=== PATIENT | female | born 1960 | race Caucasian/White ===

== ENCOUNTER 2022-01-26 19:00 | Inpatient (IN) | payer MEDICAID ==
[~2022-01-26] VITALS: Ht 157.5 cm; Wt 54.2 kg
[2022-01-26 19:39] VITALS: BP 136/72
[2022-01-26 19:53] VITALS: BP 136/72
[2022-01-26] MEDS ORDERED: NITROGLYCERIN 0.4MG TABLET SL SL PRN (20:30)
[2022-01-26] MEDS ORDERED: ACETAMINOPHEN 325MG TABLET PO PRN (20:45)
[2022-01-26] MEDS ORDERED: BISACODYL 10MG SUPP PR PRN (21:00)
[2022-01-26] MEDS ORDERED: DIPHENHYDRAMINE 25MG CAPSULE PO PRN (21:00)
[2022-01-26] MEDS ORDERED: ASCORBIC ACID 500 MG TABLET PO SCH (21:00)
[2022-01-26] MEDS ORDERED: DOCUSATE SODIUM 100MG CAPSULE PO SCH (21:00)
[2022-01-26] MEDS: ALLOPURINOL 300 MG TABLET PO SCH (21:50)
[2022-01-26] MEDS ORDERED: CHLORHEXIDINE GLUCONATE 4% EXTERNAL USE TOP SCH (22:00)
[2022-01-26 22:54] LABS: BASOPHILS % 0.3 % (0.0-2.0); EOSINOPHILS % 0.3 % (0.0-5.0); HEMATOCRIT. 43.6 % (36.0-48.0); HEMOGLOBIN. 14.9 g/dL (12.0-16.0); LYMPHOCYTES % 22.8 % (20.0-50.0); MEAN CORPUSCULAR HEMOGLOBIN 31.7 pg (28.0-32.0); MEAN CORPUSCULAR VOLUME 92.8 fL (81.0-99.0); MEAN PLATELET VOLUME 8.2 fl (7.4-10.4); MONOCYTES % 7.3 % (2.0-8.0); NEUTROPHILS % 69.3 % (40.0-76.0); PLATELET 178 x1000/uL (130-400); RED CELL DISTRIBUTION WIDTH 14.6 % (11.6-14.6)
[2022-01-26 23:02] LABS: CHLORIDE 87 mEq/L (98-107)
[2022-01-26] MEDS ORDERED: PAPAVERINE HCL 180MG in SODIUM CHLORIDE 0.9% 24ML IV NR (23:15)
[2022-01-27] VITALS (41 sets, daily range): BP systolic 92–145; BP diastolic 51–96
[2022-01-27 01:35] LABS: CLARITY URINE CLEAR (CLEAR); COLOR URINE YELLOW (YELLOW); KETONES URINE NEGATIVE (NEGATIVE); LEUKOCYTE ESTERASE URINE NEGATIVE (NEGATIVE); NITRITE URINE NEGATIVE (NEGATIVE); OCCULT BLOOD URINE NEGATIVE (NEGATIVE); PH URINE 6.5 (4.5-8.0); PROTEIN URINE NEGATIVE (NEGATIVE); SPECIFIC GRAVITY URINE 1.005 (1.005-1.030); UROBILINOGEN URINE 0.2 E.U./dL (0.2-1.0)
[2022-01-27] MEDS: ALLOPURINOL 300 MG TABLET PO SCH (05:03)
[2022-01-27] MEDS: MORPHINE SULFATE 2 MG/ML CPJ (NOT FOR IM USE) IV PRN (05:04)
[2022-01-27] MEDS ORDERED: EPINEPHRINE 5 MG in DEXT 5% WATER 245 ML IV NR ×4 (06:00)
[2022-01-27] MEDS ORDERED: DOPAMINE HCL 400 MG in DEXT 5% WATER 240 ML IV NR (06:00)
[2022-01-27] MEDS ORDERED: NOREPINEPHRINE 8 MG in DEXT 5% WATER 242 ML IV NR (06:00)
[2022-01-27] MEDS ORDERED: VANCOMYCIN 1G PREMIX 200ML IV NR (06:00)
[2022-01-27] MEDS ORDERED: DEL NIDO ELECTROLYTE-S(PH 7.4) 1,000 ML IV NR ×2 (06:00)
[2022-01-27] MEDS ORDERED: INSULIN REGULAR (DRIP) 100 UNITS in SODIUM CHLORIDE 0.9% 99 ML IV NR (06:00)
[2022-01-27] MEDS ORDERED: DOBUTAMINE 250 MG in DEXT 5% WATER 230 ML IV NR (06:00)
[2022-01-27 08:30] LABS: BASOPHILS % 0.4 % (0.0-2.0); EOSINOPHILS % 0.6 % (0.0-5.0); HEMATOCRIT. 40.3 % (36.0-48.0); HEMOGLOBIN. 14.1 g/dL (12.0-16.0); LYMPHOCYTES % 18.5 % (20.0-50.0); MEAN CORPUSCULAR HEMOGLOBIN 31.5 pg (28.0-32.0); MEAN CORPUSCULAR VOLUME 90.2 fL (81.0-99.0); MEAN PLATELET VOLUME 8.5 fl (7.4-10.4); MONOCYTES % 8.2 % (2.0-8.0); NEUTROPHILS % 72.3 % (40.0-76.0); PLATELET 170 x1000/uL (130-400); RED BLOOD CELL COUNT 4.47 mill/uL (4.2-5.4); RED CELL DISTRIBUTION WIDTH 14.6 % (11.6-14.6)
[2022-01-27 08:47] LABS: PROTHROMBIN TIME 10.3 sec (9.6-11.0)
[2022-01-27] MEDS ORDERED: PHENYLEPHRINE HCL 10 MG/ML 1ML (IV VIAL) IV ONE (08:57)
[2022-01-27] MEDS ORDERED: CALCIUM CHLORIDE 1GM/10ML SYR IV ONE ×2 (08:57→15:07)
[2022-01-27] MEDS ORDERED: POTASSIUM CHLORIDE 40MEQ/20ML INJ IV ONE (08:57)
[2022-01-27] MEDS ORDERED: SODIUM BICARBONATE 8.4% 1 MEQ/ML 50ML SYR IV ONE (08:57)
[2022-01-27] MEDS ORDERED: HEPARIN 1000 UNITS/ML 10ML ONE (08:57)
[2022-01-27] MEDS ORDERED: MANNITOL 20% (20GM/100ML) BAG 500ML PREMIX IV ONE (08:57)
[2022-01-27] MEDS ORDERED: ALBUMIN HUMAN 25GM/100ML (25%) IV ONE (08:57)
[2022-01-27] MEDS ORDERED: MAGNESIUM SULFATE 5GM/10ML VIAL IV ONE (08:57)
[2022-01-27] MEDS ORDERED: HEPARIN 10,000 UNITS/ML VIAL ONE ×2 (08:57→11:08)
[2022-01-27] MEDS ORDERED: CHLORHEXIDINE GLUCONATE 4% EXTERNAL USE TOP SCH (09:00)
[2022-01-27 09:16] LABS: CHLORIDE 93 mEq/L (98-107)
[2022-01-27] MEDS ORDERED: POLYMYXIN B SULFATE 500000 UNITS/VIAL ONE (09:39)
[2022-01-27] MEDS ORDERED: BACITRACIN 15GM TUBE TOP ONE (09:40)
[2022-01-27] MEDS ORDERED: THROMBIN (BOVINE) 5000 UNITS/VIAL TOP ONE (09:40)
[2022-01-27] MEDS ORDERED: POTASSIUM CHLORIDE INJ 40 MEQ in DEXT 5% WATER 250 ML IV ONE (10:30)
[2022-01-27] MEDS ORDERED: KCL 10MEQ/50ML PREMIX 150 ML IV PRN (11:00)
[2022-01-27] MEDS ORDERED: DEXTROSE 50% WATER 50ML SYRINGE IV PRN ×2 (11:00)
[2022-01-27] MEDS ORDERED: KCL 10MEQ/50ML PREMIX 200 ML IV PRN (11:00)
[2022-01-27] MEDS ORDERED: INSULIN REGULAR 100U/100ML PMX 100 ML IV SCH (11:00)
[2022-01-27] MEDS: BLOOD SUGAR DIAGNOSTIC STRIP TEST SCH ×8 (11:08→23:52)
[2022-01-27] MEDS ORDERED: ROCURONIUM BROMIDE 10MG/ML VIAL 5ML IV ONE ×2 (11:56→12:12)
[2022-01-27] MEDS ORDERED: DEXAMETHASONE 4MG/ML 1ML VIAL ONE (12:14)
[2022-01-27] MEDS ORDERED: PROPOFOL 10MG/ML 100ML 100 ML IV ONE (13:23)
[2022-01-27] MEDS ORDERED: SKIN ADHESIVE 0.7 GM EA TOP ONE (13:34)
[2022-01-27] MEDS ORDERED: KCL 20MEQ/100ML X 2 FOR TOTAL KCL 40MEQ/200ML IV SCH (14:00)
[2022-01-27] MEDS ORDERED: HYDROCORTISONE SOD SUCCINATE 100 MG/2 ML VIAL ONE (15:06)
[2022-01-27] MEDS ORDERED: CEFAZOLIN SODIUM 1000MG/VIAL ONE (15:06)
[2022-01-27] MEDS ORDERED: FUROSEMIDE 100MG/10ML VIAL ONE (15:06)
[2022-01-27] MEDS ORDERED: AMINOCAPROIC ACID 250 MG/ML 20ML VIAL ONE (15:06)
[2022-01-27] MEDS ORDERED: PROTAMINE SULFATE 10MG/ML VIAL 25ML IV ONE (16:33)
[2022-01-27] MEDS ORDERED: AMIODARONE HCL 50MG/ML 3ML VIAL IV ONE (16:33)
[2022-01-27] MEDS ORDERED: GLYCOPYRROLATE 0.2 MG/ML 2ML VIAL ONE ×2 (16:34→17:02)
[2022-01-27] MEDS ORDERED: NEOSTIGMINE METHYLSULFATE 1MG/ML 10 ML VIAL ONE (16:34)
[2022-01-27] MEDS ORDERED: FENTANYL CITRATE/PF 50MCG/ML 2ML VIAL ONE (16:36)
[2022-01-27] MEDS ORDERED: DOPAMINE 400MG/250ML PREMIX 250 ML IV SCH (17:00)
[2022-01-27] MEDS ORDERED: MORPHINE SULFATE 2 MG/ML CPJ (NOT FOR IM USE) IV PRN (17:00)
[2022-01-27] MEDS ORDERED: SODIUM CHLORIDE 0.9% 500 ML IV PRN (17:00)
[2022-01-27] MEDS ORDERED: MAGNESIUM 2 G PREMIX 50 ML IV PRN (17:00)
[2022-01-27] MEDS ORDERED: CALCIUM CHLORIDE 5,000 MG in DEXT 5% WATER 500 ML IV PRN (17:00)
[2022-01-27] MEDS ORDERED: MAGNESIUM 1 G PREMIX 100 ML IV PRN (17:00)
[2022-01-27] MEDS: DOCUSATE SODIUM 100MG CAPSULE PO SCH (17:00)
[2022-01-27] MEDS: BACITRACIN 15GM TUBE TOP SCH (17:00)
[2022-01-27] MEDS ORDERED: ONDANSETRON HCL 4MG/2ML INJ IV PRN (17:00)
[2022-01-27] MEDS ORDERED: OXYCODONE HCL/ACETAMINOPHEN 5/325MG TABLET PO PRN ×2 (17:00)
[2022-01-27] MEDS ORDERED: ALBUMIN HUMAN 12.5G/250ML (5%) IV PRN (17:00)
[2022-01-27] MEDS ORDERED: ACETAMINOPHEN 325MG TABLET PO PRN (17:00)
[2022-01-27] MEDS ORDERED: MAGNESIUM SULFATE 3 GM in DEXT 5% WATER 100 ML IV PRN (17:00)
[2022-01-27] MEDS: MAGNESIUM HYDROXIDE 400MG/5ML 30ML UDC PO SCH ×2 (17:00→21:00)
[2022-01-27] MEDS ORDERED: EPINEPHRINE 5 MG in DEXT 5% WATER 245 ML IV SCH (17:00)
[2022-01-27] MEDS ORDERED: ALBUMIN HUMAN 25GM/100ML (25%) IV PRN (17:00)
[2022-01-27] MEDS ORDERED: CALCIUM CHLORIDE 3,000 MG in DEXT 5% WATER 250 ML IV PRN (17:00)
[2022-01-27 17:29] LABS: BG BASE EXCESS 0.6 mmol/L (-2.0-2.0); BG CARBOXYHEMOGLOBIN 0.3 % (0.5-1.5); BG DEOXYHEMOGLOBIN 1.1 % (0.0-5.0); BG FRACTION INSPIRED OXYGEN 100; BG METHEMOGLOBIN 0.4 % (0.0-1.5); BG OXYGEN SATURATION 98.9 % (92.0-98.5); BG OXYHEMOGLOBIN 98.2 % (94.0-97.0); BG PH 7.342 (7.350-7.450); BG PO2 202.5 mmHg (75.0-100.0); BG SAMPLE SITE ALINE; BG TOTAL HEMOGLOBIN 12.4 g/dL (12.0-18.0); BG VENT MODE MASK - NRB
[2022-01-27 17:40] LABS: HEMOGLOBIN. 11.7 g/dL (12.0-16.0); MEAN CORPUSCULAR HEMOGLOBIN 31.7 pg (28.0-32.0); MEAN CORPUSCULAR VOLUME 91.7 fL (81.0-99.0); MEAN PLATELET VOLUME 7.9 fl (7.4-10.4); PLATELET 113 x1000/uL (130-400); RED BLOOD CELL COUNT 3.71 mill/uL (4.2-5.4); RED CELL DISTRIBUTION WIDTH 14.4 % (11.6-14.6)
[2022-01-27] MEDS ORDERED: DEXT 5%/0.45% NACL 1000ML 1,000 ML IV SCH (17:45)
[2022-01-27 17:54] LABS: CHLORIDE 105 mEq/L (98-107)
[2022-01-27 17:58] LABS: PLATELET ESTIMATE DECREASED
[2022-01-27] MEDS ORDERED: ALBUMIN HUMAN 12.5G/250ML (5%) IV NR ×2 (19:15→19:45)
[2022-01-27] MEDS ORDERED: CALCIUM CHLORIDE 3,000 MG in DEXT 5% WATER 90 ML IV NR (19:30)
[2022-01-27] MEDS ORDERED: DESMOPRESSIN ACETATE IVPB 18 MCG in SODIUM CHLORIDE 0.9% 50 ML IV NR (19:30)
[2022-01-27] MEDS ORDERED: AMINOCAPROIC ACID 5,000 MG in SODIUM CHLORIDE 0.9% 250 ML IV NR (19:45)
[2022-01-27] MEDS ORDERED: ALBUMIN HUMAN 25GM/100ML (25%) IV NR ×2 (19:49→20:00)
[2022-01-27] MEDS ORDERED: AMINOCAPROIC ACID 5,000 MG in SODIUM CHLORIDE 0.9% 250 ML IV ONE (20:00)
[2022-01-27] MEDS: IPRATROPIUM/ALBUTEROL 0.5-3(2.5)MG/3ML NEB HHN SCH (20:48)
[2022-01-27] MEDS: VANCOMYCIN 750 MG in DEXT 5% WATER 250 ML IV SCH (21:00)
[2022-01-27] MEDS ORDERED: FUROSEMIDE 40MG/4ML VIAL IVP NR (21:15)
[2022-01-28] VITALS (100 sets, daily range): BP systolic 95–156; BP diastolic 40–80
[2022-01-28] MEDS: IPRATROPIUM/ALBUTEROL 0.5-3(2.5)MG/3ML NEB HHN SCH ×6 (00:20→20:23)
[2022-01-28] MEDS: BLOOD SUGAR DIAGNOSTIC STRIP TEST SCH ×18 (00:28→20:54)
[2022-01-28 00:30] LABS: HEMATOCRIT. 25.4 % (36.0-48.0); HEMOGLOBIN. 8.7 g/dL (12.0-16.0); MEAN CORPUSCULAR HEMOGLOBIN 31.7 pg (28.0-32.0); MEAN CORPUSCULAR VOLUME 92.3 fL (81.0-99.0); PLATELET 86 x1000/uL (130-400); RED BLOOD CELL COUNT 2.75 mill/uL (4.2-5.4); RED CELL DISTRIBUTION WIDTH 14.6 % (11.6-14.6)
[2022-01-28] MEDS: ACETAMINOPHEN 325MG TABLET PO PRN ×2 (00:48→23:10)
[2022-01-28 00:49] LABS: CHLORIDE 106 mEq/L (98-107)
[2022-01-28 00:54] LABS: PHOSPHORUS 2.7 mg/dL (2.5-4.9)
[2022-01-28] MEDS: MAGNESIUM HYDROXIDE 400MG/5ML 30ML UDC PO SCH ×5 (01:00→16:10)
[2022-01-28 01:16] LABS: HEMATOCRIT. 24.9 % (36.0-48.0); HEMOGLOBIN. 8.6 g/dL (12.0-16.0); MEAN CORPUSCULAR HEMOGLOBIN 31.7 pg (28.0-32.0); MEAN CORPUSCULAR VOLUME 92.1 fL (81.0-99.0); MEAN PLATELET VOLUME 8.7 fl (7.4-10.4); PLATELET 82 x1000/uL (130-400); RED BLOOD CELL COUNT 2.71 mill/uL (4.2-5.4); RED CELL DISTRIBUTION WIDTH 14.5 % (11.6-14.6)
[2022-01-28] MEDS: ONDANSETRON HCL 4MG/2ML INJ IV PRN ×2 (01:46→16:47)
[2022-01-28] MEDS ORDERED: FUROSEMIDE 40MG/4ML VIAL IVP SCH (04:30)
[2022-01-28] MEDS ORDERED: KCL 20MEQ/100ML PREMIX 100 ML IV SCH (06:30)
[2022-01-28 06:56] LABS: PLATELET ESTIMATE DECREASED
[2022-01-28 07:11] LABS: PLATELET ESTIMATE DECREASED
[2022-01-28] MEDS: BACITRACIN 15GM TUBE TOP SCH ×2 (08:11→16:10)
[2022-01-28] MEDS: DOCUSATE SODIUM 100MG CAPSULE PO SCH ×2 (08:58→16:10)
[2022-01-28] MEDS: VANCOMYCIN 750 MG in DEXT 5% WATER 250 ML IV SCH ×2 (08:59→20:58)
[2022-01-28] MEDS: MORPHINE SULFATE 2 MG/ML CPJ (NOT FOR IM USE) IV PRN ×2 (09:00→15:24)
[2022-01-28] MEDS ORDERED: FAMOTIDINE 20MG/2ML VIAL IV SCH (09:00)
[2022-01-28 09:18] LABS: HEMATOCRIT. 35.8 % (36.0-48.0); HEMOGLOBIN. 12.3 g/dL (12.0-16.0); MEAN CORPUSCULAR HEMOGLOBIN 31.5 pg (28.0-32.0); MEAN CORPUSCULAR VOLUME 92.1 fL (81.0-99.0); MEAN PLATELET VOLUME 8.8 fl (7.4-10.4); PLATELET 67 x1000/uL (130-400); RED BLOOD CELL COUNT 3.89 mill/uL (4.2-5.4); RED CELL DISTRIBUTION WIDTH 14.2 % (11.6-14.6)
[2022-01-28] MEDS: KCL 10MEQ/50ML PREMIX 100 ML IV PRN ×3 (11:07→17:45)
[2022-01-28 13:33] LABS: PLATELET ESTIMATE DECREASED
[2022-01-28 16:47] LABS: HEMOGLOBIN. 11.8 g/dL (12.0-16.0); MEAN CORPUSCULAR HEMOGLOBIN 31.5 pg (28.0-32.0); MEAN PLATELET VOLUME 9.2 fl (7.4-10.4); PLATELET 72 x1000/uL (130-400); RED BLOOD CELL COUNT 3.73 mill/uL (4.2-5.4); RED CELL DISTRIBUTION WIDTH 14.3 % (11.6-14.6)
[2022-01-28] MEDS: INSULIN LISPRO 100 UNITS/ML SUBCUT SCH ×2 (17:46→20:55)
[2022-01-28 18:00] LABS: PLATELET ESTIMATE SLIGHTLY DECREASED
[2022-01-29] VITALS (20 sets, daily range): BP systolic 103–132; BP diastolic 61–80
[2022-01-29] MEDS: IPRATROPIUM/ALBUTEROL 0.5-3(2.5)MG/3ML NEB HHN SCH ×5 (00:18→20:49)
[2022-01-29 04:36] LABS: HEMOGLOBIN. 11.3 g/dL (12.0-16.0); MEAN CORPUSCULAR HEMOGLOBIN 31.5 pg (28.0-32.0); MEAN CORPUSCULAR VOLUME 91.9 fL (81.0-99.0); MEAN PLATELET VOLUME 9.6 fl (7.4-10.4); PLATELET 82 x1000/uL (130-400); RED BLOOD CELL COUNT 3.59 mill/uL (4.2-5.4); RED CELL DISTRIBUTION WIDTH 14.5 % (11.6-14.6)
[2022-01-29 04:43] LABS: CHLORIDE 106 mEq/L (98-107)
[2022-01-29] MEDS ORDERED: FUROSEMIDE 20MG/2ML VIAL IVP NR (06:15)
[2022-01-29] MEDS: BLOOD SUGAR DIAGNOSTIC STRIP TEST SCH ×4 (07:50→20:57)
[2022-01-29] MEDS ORDERED: FAMOTIDINE 20MG TABLET PO SCH (09:00)
[2022-01-29] MEDS ORDERED: NALOXONE HCL 0.4MG/ML VIAL IV PRN (09:30)
[2022-01-29] MEDS: DOCUSATE SODIUM 250MG CAPSULE PO SCH ×2 (09:31→18:28)
[2022-01-29] MEDS: ALBUMIN HUMAN 25GM/100ML (25%) IV SCH ×4 (09:32→18:17)
[2022-01-29] MEDS: BACITRACIN 15GM TUBE TOP SCH ×2 (09:32→18:59)
[2022-01-29] MEDS: INSULIN LISPRO 100 UNITS/ML SUBCUT SCH ×4 (09:56→20:59)
[2022-01-29] MEDS ORDERED: TRAMADOL HCL/ACETAMINOPHEN 37.5/325MG TABLET PO PRN (11:00)
[2022-01-29 14:04] LABS: PLATELET ESTIMATE DECREASED
[2022-01-29] MEDS: METHYLPHENIDATE HCL 5MG TABLET PO SCH ×2 (14:48→17:00)
[2022-01-29] MEDS ORDERED: OMEPRAZOLE 20MG CAPSULE EXTENDED RELEASE PO SCH (20:00)
[2022-01-30] VITALS (12 sets, daily range): BP systolic 123–147; BP diastolic 72–97
[2022-01-30] MEDS: IPRATROPIUM/ALBUTEROL 0.5-3(2.5)MG/3ML NEB HHN SCH ×6 (00:45→19:56)
[2022-01-30] MEDS: BLOOD SUGAR DIAGNOSTIC STRIP TEST SCH ×4 (07:30→21:00)
[2022-01-30] MEDS: INSULIN LISPRO 100 UNITS/ML SUBCUT SCH ×4 (08:00→21:00)
[2022-01-30 08:03] LABS: HEMATOCRIT. 29.6 % (36.0-48.0); HEMOGLOBIN. 10.1 g/dL (12.0-16.0); LYMPHOCYTES % 7.3 % (20.0-50.0); MEAN CORPUSCULAR VOLUME 93.7 fL (81.0-99.0); MEAN PLATELET VOLUME 9.5 fl (7.4-10.4); MONOCYTES % 5.4 % (2.0-8.0); NEUTROPHILS % 87.3 % (40.0-76.0); PLATELET 101 x1000/uL (130-400); RED BLOOD CELL COUNT 3.16 mill/uL (4.2-5.4); RED CELL DISTRIBUTION WIDTH 14.6 % (11.6-14.6)
[2022-01-30 08:31] LABS: CHLORIDE 105 mEq/L (98-107)
[2022-01-30] MEDS: BACITRACIN 15GM TUBE TOP SCH ×2 (09:00→16:24)
[2022-01-30] MEDS: DOCUSATE SODIUM 250MG CAPSULE PO SCH ×2 (09:00→16:10)
[2022-01-30] MEDS: METHYLPHENIDATE HCL 5MG TABLET PO SCH ×3 (09:03→16:10)
[2022-01-30] MEDS ORDERED: METOLAZONE 10MG TABLET PO NR (14:30)
[2022-01-30] MEDS ORDERED: FUROSEMIDE 40MG/4ML VIAL IVP NR (14:30)
[2022-01-30] MEDS ORDERED: KCL 20MEQ/100ML PREMIX 100 ML IV NR (15:00)
[2022-01-30] MEDS: FAMOTIDINE 20MG TABLET PO SCH (17:10)
[2022-01-30] MEDS ORDERED: NALOXONE HCL 0.4MG/ML VIAL IV PRN (21:45)
[2022-01-31] VITALS (12 sets, daily range): BP systolic 122–152; BP diastolic 63–94
[2022-01-31] MEDS: IPRATROPIUM/ALBUTEROL 0.5-3(2.5)MG/3ML NEB HHN SCH ×6 (00:38→20:10)
[2022-01-31] MEDS: BLOOD SUGAR DIAGNOSTIC STRIP TEST SCH (06:48)
[2022-01-31] MEDS: INSULIN LISPRO 100 UNITS/ML SUBCUT SCH (06:49)
[2022-01-31] MEDS: METHYLPHENIDATE HCL 5MG TABLET PO SCH ×3 (08:35→18:28)
[2022-01-31] MEDS: DOCUSATE SODIUM 250MG CAPSULE PO SCH ×2 (08:35→16:07)
[2022-01-31] MEDS: FAMOTIDINE 20MG TABLET PO SCH ×2 (08:35→18:28)
[2022-01-31] MEDS: BACITRACIN 15GM TUBE TOP SCH ×2 (08:36→17:00)
[2022-01-31] MEDS ORDERED: CARVEDILOL 3.125 MG TABLET PO SCH (09:30)
[2022-01-31] MEDS ORDERED: FUROSEMIDE 40MG/4ML VIAL IVP NR (09:30)
[2022-01-31] MEDS: PHENOL/SODIUM PHENOLATE 1.4% SRPAY 177ML MM PRN (15:43)
[2022-01-31] MEDS ORDERED: ATORVASTATIN CALCIUM 20MG TABLET PO SCH (21:00)
[2022-01-31] MEDS: CARVEDILOL 6.25 MG TABLET PO SCH (21:48)
[2022-02-01] VITALS (8 sets, daily range): BP systolic 108–130; BP diastolic 68–84
[2022-02-01] MEDS: IPRATROPIUM/ALBUTEROL 0.5-3(2.5)MG/3ML NEB HHN SCH ×3 (00:22→09:11)
[2022-02-01] MEDS: PHENOL/SODIUM PHENOLATE 1.4% SRPAY 177ML MM PRN (01:44)
[2022-02-01] MEDS: DOCUSATE SODIUM 250MG CAPSULE PO SCH (08:53)
[2022-02-01] MEDS: METHYLPHENIDATE HCL 5MG TABLET PO SCH (08:54)
[2022-02-01] MEDS: CARVEDILOL 6.25 MG TABLET PO SCH (08:54)
[2022-02-01] MEDS: FAMOTIDINE 20MG TABLET PO SCH (08:54)
[2022-02-01] MEDS: BACITRACIN 15GM TUBE TOP SCH (08:55)
== END 2022-02-01 14:24 | disposition home or self-care (01) | DRG 166 ==
LOC: 7EST 19:00 → 7WST 19:36 → CVICU 01-27 17:05 → 5EST 01-29 13:00
PROVIDERS: ADMIT Hospitalist; ATTEND Hospitalist
PROC: 02100Z9 Bypass Coronary Artery, One Artery from Left Internal Mammary, Open Approach (ICD-10-PCS; principal; 2022-01-27)
PROC: 021309W Bypass Coronary Artery, Four or More Arteries from Aorta with Autologous Venous Tissue, Open Approach (ICD-10-PCS; 2022-01-27)
PROC: 5A1221Z Performance of Cardiac Output, Continuous (ICD-10-PCS; 2022-01-27)
PROC: 06BP4ZZ Excision of Right Saphenous Vein, Percutaneous Endoscopic Approach (ICD-10-PCS; 2022-01-27)
PROC: 30233N1 Transfusion of Nonautologous Red Blood Cells into Peripheral Vein, Percutaneous Approach (ICD-10-PCS; 2022-01-28)
DX: I25.10 Atherosclerotic heart disease of native coronary artery without angina pectoris (principal); J96.01 Acute respiratory failure with hypoxia; I21.4 Non-ST elevation (NSTEMI) myocardial infarction; I50.21 Acute systolic (congestive) heart failure; E87.6 Hypokalemia; I25.5 Ischemic cardiomyopathy; I11.0 Hypertensive heart disease with heart failure; I73.9 Peripheral vascular disease, unspecified; Z20.822 Contact with and (suspected) exposure to COVID-19; J93.9 Pneumothorax, unspecified; S90.822A Blister (nonthermal), left foot, initial encounter; X58.XXXA Exposure to other specified factors, initial encounter; Y93.89 Activity, other specified; Y92.89 Other specified places as the place of occurrence of the external cause; Y99.8 Other external cause status; Z88.6 Allergy status to analgesic agent; Z88.1 Allergy status to other antibiotic agents
CPT/HCPCS: 36415; 36600; 71045; 80048; 80053; 81003; 82375; 82805; 82962; 83735; 84100; 84132; 85025; 85347; 86850; 86900; 86920; 87426; 93005; 93880; 93923; 94640; 97110; 97116; 97162; 97166; 97530; 97535; C1729; C1751; C1758; J0282; J0690; J1100; J1250; J1265; J1644; J1720; J1815; J1940; J2270; J2370; J2405; J2440; J2597; J2704; J2710; J2720; J3010; J3370; J3475; J3480; J3490; J7050; J7060; L3908; P9016; P9041; P9047

== ENCOUNTER 2022-02-04 22:41 | Inpatient (IN) | payer MEDICAID ==
[~2022-02-04] VITALS: Ht 160 cm; Wt 58.1 kg
[2022-02-04 23:54] LABS: BASOPHILS % 0.2 % (0.0-2.0); EOSINOPHILS % 0.4 % (0.0-5.0); HEMATOCRIT. 32.2 % (36.0-48.0); HEMOGLOBIN. 11.2 g/dL (12.0-16.0); LYMPHOCYTES % 12.5 % (20.0-50.0); MEAN CORPUSCULAR HEMOGLOBIN 31.6 pg (28.0-32.0); MEAN PLATELET VOLUME 7.8 fl (7.4-10.4); MONOCYTES % 8.2 % (2.0-8.0); NEUTROPHILS % 78.7 % (40.0-76.0); PLATELET 315 x1000/uL (130-400); RED BLOOD CELL COUNT 3.54 mill/uL (4.2-5.4)
[2022-02-05 00:04] LABS: CHLORIDE 90 mEq/L (98-107)
[2022-02-05 02:08] LABS: CLARITY URINE CLEAR (CLEAR); COLOR URINE YELLOW (YELLOW); KETONES URINE NEGATIVE (NEGATIVE); LEUKOCYTE ESTERASE URINE NEGATIVE (NEGATIVE); NITRITE URINE NEGATIVE (NEGATIVE); OCCULT BLOOD URINE TRACE (NEGATIVE); PH URINE 5.5 (4.5-8.0); PROTEIN URINE NEGATIVE (NEGATIVE); SPECIFIC GRAVITY URINE 1.007 (1.005-1.030); UROBILINOGEN URINE 0.2 E.U./dL (0.2-1.0)
[2022-02-05] MEDS ORDERED: HYDROCODONE/ACETAMINOPHEN 10/325MG TABLET PO PRN (06:15)
[2022-02-05 10:18] VITALS: BP 141/77
[2022-02-05] MEDS ORDERED: CARV6.2548 MT (10:42)
[2022-02-05] MEDS ORDERED: DOCU250C69 MT (10:42)
[2022-02-05] MEDS ORDERED: TRAM50TA3 MT (10:43)
[2022-02-05] MEDS ORDERED: FAMO20TA8 MT (10:45)
[2022-02-05] MEDS ORDERED: ATOR20TA65 MT (10:45)
[2022-02-05 12:00] VITALS: BP 146/82
[2022-02-05] MEDS ORDERED: HYDROCODONE/ACETAMINOPHEN 5/325MG TABLET PO PRN (12:00)
[2022-02-05] MEDS ORDERED: ONDANSETRON HCL 4MG/2ML INJ IV PRN (12:00)
[2022-02-05] MEDS ORDERED: FUROSEMIDE 40MG/4ML VIAL IV SCH (12:00)
[2022-02-05] MEDS ORDERED: MAGNESIUM/ALUMINUM HYDROXIDE/SIMETHICONE 30ML UDC PO PRN (12:00)
[2022-02-05] MEDS ORDERED: FUROSEMIDE 40MG/4ML VIAL IVP NR (12:00)
[2022-02-05] MEDS ORDERED: KCL 20MEQ/100ML PREMIX 100 ML IV NR (12:00)
[2022-02-05] MEDS ORDERED: ACETAMINOPHEN 325MG TABLET PO PRN (12:00)
[2022-02-05] MEDS ORDERED: CLONIDINE 0.1MG TABLET PO PRN (12:00)
[2022-02-05 12:48] LABS: HEMATOCRIT 33.3 % (36.0-48.0); HEMOGLOBIN 11.5 g/dL (12.0-16.0); MEAN CORPUSCULAR HEMOGLOBIN 31.6 pg (28.0-32.0); MEAN CORPUSCULAR VOLUME 91.8 fL (81.0-99.0); PLATELET 311 x1000/uL (130-400); RED BLOOD CELL COUNT 3.63 mill/uL (4.2-5.4); RED CELL DISTRIBUTION WIDTH 14.1 % (11.6-14.6)
[2022-02-05 12:57] LABS: CHLORIDE 96 mEq/L (98-107)
[2022-02-05] MEDS: ENOXAPARIN 40MG/0.4ML SYR SUBCUT SCH (13:36)
[2022-02-05 15:54] LABS: CREATINE KINASE MB FRACTION 3.3 ng/mL (0.5-3.6)
[2022-02-05 16:00] VITALS: BP 158/87
[2022-02-05] MEDS ORDERED: CARVEDILOL 6.25 MG TABLET PO SCH (17:00)
[2022-02-05] MEDS: DOCUSATE SODIUM 250MG CAPSULE PO SCH (17:01)
[2022-02-05 20:00] VITALS: BP 136/77
[2022-02-05] MEDS: ATORVASTATIN CALCIUM 20MG TABLET PO SCH (21:37)
[2022-02-05] MEDS: POTASSIUM CHLORIDE 20MEQ TABLET SR PO SCH (21:39)
[2022-02-06 00:16] LABS: CREATINE KINASE MB FRACTION 2.4 ng/mL (0.5-3.6)
[2022-02-06 00:20] VITALS: BP 112/75
[2022-02-06 04:20] VITALS: BP 119/76
[2022-02-06 08:00] VITALS: BP 126/75
[2022-02-06 08:06] LABS: BASOPHILS % 0.2 % (0.0-2.0); EOSINOPHILS % 0.2 % (0.0-5.0); HEMATOCRIT. 31.8 % (36.0-48.0); LYMPHOCYTES % 11.3 % (20.0-50.0); MEAN CORPUSCULAR HEMOGLOBIN 31.6 pg (28.0-32.0); MONOCYTES % 7.2 % (2.0-8.0); NEUTROPHILS % 81.1 % (40.0-76.0); PLATELET 307 x1000/uL (130-400)
[2022-02-06] MEDS: DOCUSATE SODIUM 250MG CAPSULE PO SCH ×2 (08:18→17:37)
[2022-02-06] MEDS: POTASSIUM CHLORIDE 20MEQ TABLET SR PO SCH (08:18)
[2022-02-06] MEDS: OMEPRAZOLE 20MG CAPSULE EXTENDED RELEASE PO SCH (08:18)
[2022-02-06] MEDS: CARVEDILOL 6.25 MG TABLET PO SCH ×2 (08:19→17:00)
[2022-02-06] MEDS: LOSARTAN POTASSIUM 50 MG TABLET PO SCH (08:20)
[2022-02-06] MEDS: SPIRONOLACTONE 25MG TABLET PO SCH (08:20)
[2022-02-06 08:25] LABS: CHLORIDE 98 mEq/L (98-107)
[2022-02-06 08:44] LABS: HDL CHOLESTEROL 34 mg/dL (40-59); LDL CHOLESTEROL 79 mg/dL (5-100); PHOSPHORUS 2.2 mg/dL (2.5-4.9); T4 FREE 1.29 ng/dL (0.76-1.46)
[2022-02-06] MEDS ORDERED: FUROSEMIDE 40MG/4ML VIAL IV SCH (09:00)
[2022-02-06] MEDS: FUROSEMIDE 40MG/4ML VIAL IVP SCH (09:00)
[2022-02-06 10:30] LABS: *AMPHETAMINES SCREEN URINE NEGATIVE (NEGATIVE); *BARBITURATES SCREEN URINE NEGATIVE (NEGATIVE); *BENZODIAZEPINES SCREEN URINE NEGATIVE (NEGATIVE); CANNABINOID URINE SCREEN NEGATIVE (NEGATIVE); METHADONE URINE SCREEN NEGATIVE (NEGATIVE); OPIATES URINE SCREEN NEGATIVE (NEGATIVE); PHENCYCLIDINE URINE SCREEN NEGATIVE (NEGATIVE)
[2022-02-06 12:00] VITALS: BP 103/67
[2022-02-06 12:59] LABS: *COCAINE SCREEN URINE NEGATIVE (NEGATIVE)
[2022-02-06] MEDS: ENOXAPARIN 40MG/0.4ML SYR SUBCUT SCH (13:21)
[2022-02-06 16:00] VITALS: BP 101/67
[2022-02-06] MEDS ORDERED: NALOXONE HCL 0.4MG/ML VIAL IV PRN (18:15)
[2022-02-06 20:00] VITALS: BP 90/57
[2022-02-06 20:38] LABS: INR 1.1; PARTIAL THROMBOPLASTIN TIME 37.2 sec (23.4-31.0); PROTHROMBIN TIME 11.5 sec (9.6-11.0)
[2022-02-06 21:12] LABS: CREATINE KINASE MB FRACTION 1.6 ng/mL (0.5-3.6)
[2022-02-06] MEDS: ATORVASTATIN CALCIUM 20MG TABLET PO SCH (22:06)
[2022-02-07] VITALS: BP 119/68
[2022-02-07 04:00] VITALS: BP 114/70
[2022-02-07] MEDS: OMEPRAZOLE 20MG CAPSULE EXTENDED RELEASE PO SCH (05:51)
[2022-02-07 08:00] VITALS: BP 126/71
[2022-02-07] MEDS: POTASSIUM CHLORIDE 20MEQ TABLET SR PO SCH (08:19)
[2022-02-07] MEDS: DOCUSATE SODIUM 250MG CAPSULE PO SCH ×2 (08:20→16:07)
[2022-02-07] MEDS: SPIRONOLACTONE 25MG TABLET PO SCH (08:20)
[2022-02-07] MEDS: CARVEDILOL 6.25 MG TABLET PO SCH ×3 (08:20→21:00)
[2022-02-07] MEDS: LOSARTAN POTASSIUM 50 MG TABLET PO SCH (08:20)
[2022-02-07] MEDS: FUROSEMIDE 40MG/4ML VIAL IVP SCH (08:24)
[2022-02-07 08:44] LABS: BASOPHILS % 0.3 % (0.0-2.0); EOSINOPHILS % 0.4 % (0.0-5.0); HEMATOCRIT. 31.3 % (36.0-48.0); HEMOGLOBIN. 10.8 g/dL (12.0-16.0); LYMPHOCYTES % 7.8 % (20.0-50.0); MEAN CORPUSCULAR HEMOGLOBIN 31.7 pg (28.0-32.0); MONOCYTES % 4.7 % (2.0-8.0); NEUTROPHILS % 86.8 % (40.0-76.0); PLATELET 297 x1000/uL (130-400); RED CELL DISTRIBUTION WIDTH 14.2 % (11.6-14.6)
[2022-02-07 09:11] LABS: CHLORIDE 99 mEq/L (98-107)
[2022-02-07] MEDS ORDERED: SODIUM BICARBONATE 4% (2.4MEQ) 5ML VIAL IV ONE (09:40)
[2022-02-07] MEDS ORDERED: FUROSEMIDE 40MG/4ML VIAL IVP NR (09:45)
[2022-02-07] MEDS ORDERED: MAGNESIUM 4 G PREMIX 100 ML IV NR (11:00)
[2022-02-07 12:00] VITALS: BP 106/66
[2022-02-07 15:48] VITALS: BP 105/56
[2022-02-07] MEDS: ENOXAPARIN 40MG/0.4ML SYR SUBCUT SCH (16:07)
[2022-02-07 20:00] VITALS: BP 105/63
[2022-02-07] MEDS: ATORVASTATIN CALCIUM 20MG TABLET PO SCH (21:31)
[2022-02-07] MEDS ORDERED: GUAIFENESIN 200MG/10ML SUGAR FREE UDC PO PRN (22:00)
[2022-02-07] MEDS ORDERED: GUAIFENESIN 200MG TABLET PO PRN (23:00)
[2022-02-08] VITALS: BP 108/63
[2022-02-08 04:00] VITALS: BP_SYST 113; BP_SYST 150; BP_DIAS 67; BP_DIAS 74
[2022-02-08 08:00] VITALS: BP 107/64
[2022-02-08] MEDS: FUROSEMIDE 40MG/4ML VIAL IVP SCH (08:30)
[2022-02-08] MEDS: POTASSIUM CHLORIDE 20MEQ TABLET SR PO SCH (08:30)
[2022-02-08] MEDS: DOCUSATE SODIUM 250MG CAPSULE PO SCH (08:30)
[2022-02-08] MEDS: CARVEDILOL 6.25 MG TABLET PO SCH (08:31)
[2022-02-08] MEDS: LOSARTAN POTASSIUM 50 MG TABLET PO SCH (08:32)
[2022-02-08] MEDS: SPIRONOLACTONE 25MG TABLET PO SCH (08:38)
[2022-02-08] MEDS ORDERED: FAMOTIDINE 20MG TABLET PO SCH (09:00)
[2022-02-08] MEDS ORDERED: COR6 PO (09:38)
[2022-02-08] MEDS ORDERED: FURO-151 MT (09:38)
[2022-02-08] MEDS ORDERED: DEXTL PO (09:38)
[2022-02-08] MEDS ORDERED: SPIR25TA PO (09:38)
[2022-02-08] MEDS ORDERED: POTA20TA82 PO (09:38)
[2022-02-08 10:20] VITALS: BP 107/64
[2022-02-08 12:00] VITALS: BP 106/66
== END 2022-02-08 13:00 | disposition home or self-care (01) | DRG 194 ==
LOC: ER 22:51 → 8WST 02-05 04:16 → ENRESERV 02-05 07:20 → EDBEDREQ 02-05 07:33 → EDBEDREQTM 02-05 07:33
PROVIDERS: ADMIT Internal Medicine; ATTEND Internal Medicine
PROC: 0W9B30Z Drainage of Left Pleural Cavity with Drainage Device, Percutaneous Approach (ICD-10-PCS; principal; 2022-02-07)
DX: I11.0 Hypertensive heart disease with heart failure (principal); J96.00 Acute respiratory failure, unspecified whether with hypoxia or hypercapnia; I50.43 Acute on chronic combined systolic (congestive) and diastolic (congestive) heart failure; E87.1 Hypo-osmolality and hyponatremia; E87.6 Hypokalemia; Z20.822 Contact with and (suspected) exposure to COVID-19; I25.10 Atherosclerotic heart disease of native coronary artery without angina pectoris; J91.8 Pleural effusion in other conditions classified elsewhere; E78.5 Hyperlipidemia, unspecified; Z95.1 Presence of aortocoronary bypass graft; Z88.1 Allergy status to other antibiotic agents; Z88.6 Allergy status to analgesic agent
CPT/HCPCS: 32555; 36415; 71045; 80048; 80053; 80061; 80076; 80305; 81003; 82553; 83735; 83880; 84100; 84439; 84443; 84484; 85025; 85027; 87426; 88108; 93005; 93306; 99291; C1893; J1650; J1940; J3475; J3480; J3490